=== PATIENT | female | born 1965 | race African-American/Black ===

== ENCOUNTER 2024-01-12 09:53 | Emergency (ER) | payer BC ==
[2024-01-12] MEDS ORDERED: HYDROcodone/Acetaminophen 5/325 mg Tablet ONE (10:18)
== END 2024-01-12 11:58 | disposition home or self-care (01) ==
LOC: MADERS 09:53
DX: S42.351A Displaced comminuted fracture of shaft of humerus, right arm, initial encounter for closed fracture (principal); V03.00XA Pedestrian on foot injured in collision with car, pick-up truck or van in nontraffic accident, initial encounter; Y92.481 Parking lot as the place of occurrence of the external cause
CPT/HCPCS: 24500